=== PATIENT | female | born 1985 | race Asian ===

== ENCOUNTER 2017-05-31 10:36 | Observation (INO) | payer BC ==
[~2017-05-31] VITALS: Ht 154.9 cm; Wt 75.3 kg
== END 2017-05-31 11:21 | disposition home or self-care (01) ==
LOC: SPU 10:36 → UNDODISOB 11:25
PROVIDERS: ADMIT Specialist; ATTEND Specialist
DX: Z34.93 Encounter for supervision of normal pregnancy, unspecified, third trimester (principal); Z3A.35 35 weeks gestation of pregnancy
CPT/HCPCS: G0378